=== PATIENT | male | born 1945 | race Caucasian/White ===

== ENCOUNTER 2016-11-23 14:34 | Inpatient (IN) | payer MEDICARE, OTHER ==
[~2016-11-23] VITALS: Ht 172.7 cm; Wt 71.7 kg
--- NOTE | 2016-12-04 14:44 | NUR ---
PT. TO D/C HOME WITH SPOUSE ON 12/06/16. PT. HAS A ROLLING WALKER. PT. REQUESTED OUTPT. AT [facility]. FIRST APPT. IS 12/07/16 @ 10:00 A.M. D/C NOTICE AND QUESTIONNAIRE GIVEN.
--- NOTE | 2016-12-06 12:41 | NUR ---
PT. D/C HOME THIS DATE WITH SPOUSE. PT. HAS A ROLLING WALKER. PT. REQUESTED [facility]. FIRST APPT. IS 12/07/16 @ 10:00 A.M. PT. HAS COMPLETED XARELTO THERAPY. D/C NOTICE AND QUESTIONNAIRE GIVEN.
--- NOTE | 2016-12-06 12:49 | NUR ---
DISCHARGE INSTRUCTIONS GIVEN TO PATIENT, VOICED COMPLETE UNDERSTANDING. TO HOME PER PRIVATE VEHICLE WITH CONDITION STABLE
== END 2016-12-06 12:50 | disposition home or self-care (01) | DRG 561 ==
LOC: FSNU 14:34
PROVIDERS: ADMIT Orthopaedic Surgery
DX: Z47.1 Aftercare following joint replacement surgery (principal); E03.9 Hypothyroidism, unspecified; Z96.651 Presence of right artificial knee joint; I25.10 Atherosclerotic heart disease of native coronary artery without angina pectoris; Z95.1 Presence of aortocoronary bypass graft; K21.9 Gastro-esophageal reflux disease without esophagitis; E78.5 Hyperlipidemia, unspecified
CPT/HCPCS: 88311; 97110; 97116; 97161; 97166; 97530; 97530-GP; 97535

== ENCOUNTER → 2016-12-19 | Day surgery (SDC) | payer MEDICARE, OTHER ==
[~2016-12-19] VITALS: Ht 172.7 cm; Wt 68.9 kg
== END | disposition home or self-care (01) ==
LOC: FAS 06:08
DX: M76.891 Other specified enthesopathies of right lower limb, excluding foot (principal); K21.9 Gastro-esophageal reflux disease without esophagitis; E03.9 Hypothyroidism, unspecified; I10 Essential (primary) hypertension; I25.2 Old myocardial infarction; Z79.899 Other long term (current) drug therapy; Z95.1 Presence of aortocoronary bypass graft; Z98.41 Cataract extraction status, right eye; Z98.890 Other specified postprocedural states; Z96.651 Presence of right artificial knee joint
CPT/HCPCS: 97162; J2704; J2795; J3010